=== PATIENT | female | born 1960 | race Caucasian/White ===

== ENCOUNTER 2018-06-30 08:35 | Inpatient (IN) | payer MEDICARE, OTHER ==
[~2018-06-30] VITALS: Ht 162.6 cm; Wt 73.1 kg
[2018-06-30 09:25] VITALS: BP 143/78
--- NOTE | 2018-06-30 10:00 | NUR ---
Pt arrived via [facility] @ [id number] by EMS. Completed admission assessment. Consult called to Dr. De La Torre. Received orders from Dr. Jones. Oriented to unit and routines. Call light within reach. Will continue to monitor.
[2018-06-30] MEDS ORDERED: MORPHINE SULFATE 4 MG/ML VIAL. IV PRN (10:45)
[2018-06-30] MEDS ORDERED: IV NORMAL SALINE 1000ML BAG 1,000 ML IV SCH (10:45)
[2018-06-30] MEDS ORDERED: ONDANSETRON PF 4 MG/2 ML VIAL. IV PRN ×2 (10:45→12:00)
[2018-06-30 11:00] VITALS: BP 120/66
--- NOTE | 2018-06-30 11:21 | PDOC2 ---
CONSULT Date of Consult Date of Consult DATE: 06/30/18 TIME: 11:13 Reason for Consult Reason for Consult: SBO 2/2 incarcerated [facility] Referring Physician Referring Physician: Dr Jones Identification/Chief Complaint Chief Complaint LLQ pain Source Source: Chart review, Patient History of Present Illness Reason for Visit: Le is a 57 yo lady who presented to the [facility] ED with c/o LLQ pain. CT shows a SBO 2/2 incarcerated small bowel in a left inguinal hernia. We are asked to see for same Past Medical History Cardiovascular: No pertinent hx Pulmonary: Asthma Past Surgical History Past Surgical History: Hysterectomy, Other (right breast lumpectomy) Family History Family History: No Significant Social History 1 pack per day ALCOHOL: none Drugs: None Current Medications Current Medications Current Medications Sodium Chloride 1,000 ml @ 100 mls/hr Q10H IV ; Start 06/30/18 at 10:45 Morphine Sulfate (Morphine Sulfate) 4 mg PRN Q4HRS PRN IV PAIN; Start 06/30/18 at 10:45 Ondansetron HCl (Zofran) 4 mg PRN Q6HRS PRN IV NAUSEA/VOMITING; Start 06/30/18 at 10:45 Allergies Allergies: Coded Allergies: chlorpromazine (Verified Allergy, Unknown, 06/30/18) ROS PSYCHOLOGICAL ROS: YES: Anxiety, Depression Gastrointestinal: Yes Nausea, Yes Abdominal Pain Physical Exam General: Alert, No acute distress HEENT: Atraumatic Lungs: Normal air movement Heart: Regular rate Abdomen: Soft, Other (some mild LLQ TTP ) Skin: Other (warm, dry) Vitals VITALS Vital Signs Date Time Temp Pulse Resp B/P (MAP) Pulse Ox O2 Delivery O2 Flow Rate FiO2 06/30/18 10:49 Room Air 06/30/18 09:25 97.6 64 18 143/78 (99) [address] done at [facility] reviewed Assessment/Plan Assessment/Plan SBO 2/2 incarcerated small bowel in a [facility] psych hx needs repair explained risks including but not limited to bleeding, infection, injury to bowel, bladder, possible need for an open procedure with bowel resection she understands and will proceed to OR today Thanks for consult LEX HEWITT MD Jun 30, 2018 11:21
[2018-06-30] MEDS ORDERED: fentaNYL PF VIAL 250 MCG/5 ML VIAL ONE (11:58)
[2018-06-30] MEDS ORDERED: ROCURONIUM 50 MG/5 ML VIAL. ONE (11:58)
[2018-06-30] MEDS ORDERED: HYDROmorphone 2 MG/ML VIAL IV PRN (12:00)
[2018-06-30] MEDS ORDERED: LIDOCAINE 1% PF 2 ML VIAL. ID PRN (12:00)
[2018-06-30] MEDS ORDERED: MORPHINE SULFATE 2 MG/ML VIAL. IV PRN (12:00)
[2018-06-30] MEDS ORDERED: fentaNYL PF VIAL 100 MCG/2 ML VIAL IV PRN ×2 (12:00)
[2018-06-30] MEDS ORDERED: IV RINGERS,LACTATED 1000ML 1,000 ML IV SCH (12:00)
--- NOTE | 2018-06-30 12:20 | PDOC ---
Provider Note Provider Note Ms Quiñones has decided against surgery and is leaving AMA. She feels that if she drinks more liquids and avoids solid food she will be OK. I explained to her I do not agree with that, but she has decided to leave. LEX HEWITT MD Jun 30, 2018 12:20
--- NOTE | 2018-06-30 12:44 | NUR ---
Pt requesting to leave AMA. Dr. De La Torre on the floor and aware. Called and updated Dr. Jones. Cab pass received from animal care supervisor. IV removed by IRONER.
--- NOTE | 2018-06-30 14:01 | NUR ---
Pt signed AMA forms. Sat with her until cab arrived. She was assisted in cab.
== END 2018-06-30 13:23 | disposition left against medical advice (07) | DRG 394 ==
LOC: 4 NORTH 09:30
PROVIDERS: ADMIT Internal Medicine; ATTEND Internal Medicine
DX: K40.90 Unilateral inguinal hernia, without obstruction or gangrene, not specified as recurrent (principal); K56.609 Unspecified intestinal obstruction, unspecified as to partial versus complete obstruction; J45.909 Unspecified asthma, uncomplicated; Z90.710 Acquired absence of both cervix and uterus; Z88.8 Allergy status to other drugs, medicaments and biological substances
CPT/HCPCS: J3010

== ENCOUNTER 2018-07-25 17:16 | Emergency (ER) | payer MEDICARE, OTHER ==
[~2018-07-25] VITALS: Ht 162.6 cm; Wt 73.0 kg
[2018-07-25 18:28] VITALS: BP 143/77
[2018-07-25] MEDS ORDERED: ONDANSETRON ODT 4 MG TAB.RAPDIS. PO ONE (18:45)
[2018-07-25] MEDS ORDERED: ONDA4TAB12 PO (19:50)
--- NOTE | 2018-07-25 19:51 | PHYS DOC ---
Past Medical History Past Medical History: Anxiety, Bipolar, CVA, Depression, Schizophrenia (CHELSEA BRANTLEY APRN) Past Surgical History: No Surgical History (CHELSEA BRANTLEY APRN) Adult General Chief Complaint Chief Complaint: NAUSEA/VOMITING/[facility] HPI Patient is a 58 year old female who presents to the emergency room with complaints of nausea times one day. Patient denies any fever, vomiting, diarrhea , constipation, or abdominal pain. She states she recently ran out of all of her medications and needs to get in contact with her counseling case manager so she can get her medication refills. Patient denies any chest pain, shortness of breath, cough, ear pain or sore throat. (CHELSEA BRANTLEY APRN) Review of Systems Review of Systems Constitutional: Denies fever or chills [] Eyes: Denies change in visual acuity, redness, or eye pain [] HENT: Denies nasal congestion or sore throat [] Respiratory: Denies cough or shortness of breath [] Cardiovascular: No additional information not addressed in HPI [] GI: Denies abdominal pain, vomiting,or diarrhea; reports nausea today Musculoskeletal: Denies back pain or joint pain [] Integument: Denies rash or skin lesions [] Neurologic: Denies headache, focal weakness or sensory changes [] (CHELSEA BRANTLEY APRN) Current Medications Current Medications Current Medications Medications (Trade) Dose Ordered Sig/Chad Start Time Stop Time Status Last Admin Dose Admin Ondansetron HCl (Zofran Odt) 4 mg 1X ONCE 07/25/18 18:45 07/25/18 18:46 DC 07/25/18 18:45 4 MG (JUSTA MAYERS DO) Allergies Allergies Allergies Coded Allergies Type Severity Reaction Last Updated Verified chlorpromazine Allergy Unknown 06/30/18 Yes (JUSTA MAYERS DO) Physical Exam Physical Exam Constitutional: Well developed, well nourished, no acute distress, non-toxic appearance. [] HENT: Normocephalic, atraumatic, bilateral external ears normal, oropharynx moist, no oral exudates, nose normal. [] Eyes: PERRLA, conjunctiva normal, no discharge. [] Neck: Normal range of motion, no stridor. [] Cardiovascular:Heart rate regular rhythm, no murmur [] Lungs & Thorax: Bilateral breath sounds clear to auscultation [] Abdomen: Bowel sounds normal, soft, no tenderness, no masses, no pulsatile masses. [] Skin: Warm, dry, no erythema, no rash. [] Extremities: No cyanosis, no clubbing, ROM intact Neurologic: Alert and oriented X 3, normal motor function, normal sensory function, no focal deficits noted. [] Psychologic: Affect normal, judgement normal, mood normal. [] (CHELSEA BRANTLEY APRN) Current Patient Data Vital Signs Vital Signs Date Time Temp Pulse Resp B/P (MAP) Pulse Ox O2 Delivery O2 Flow Rate FiO2 07/25/18 18:28 98.5 82 20 143/77 (99) 97 Room Air 98.5 (MAYERSJUSTA DAMON DO) EKG EKG [] (CHELSEA BRANTLEY APRN) Radiology/Procedures Radiology/Procedures [] (CHELSEA BRANTLEY APRN) Course & Med Decision Making Course & Med Decision Making Pertinent Labs and Imaging studies reviewed. (See chart for details) dx: Nausea Patient was given sublingual Zofran in the emergency department she reported feeling better after medication. A prescription was written for Zofran, patient was encouraged to follow up bland diet and nausea symptoms persist. Patient was encouraged to follow up with her counseling case manager so she can get her medications straightened out.Patient verbalized an understanding of home care, medications, follow-up, and return to ED instructions and was in agreement with the plan of care. [] (CHELSEA BRANTLEY APRN) Dragon Disclaimer Dragon Disclaimer This electronic medical record was generated, in whole or in part, using a voice recognition dictation system. (CHELSEA BRANTLEY APRN) Departure Departure Impression: Primary Impression: Nausea alone Disposition: 01 HOME, SELF-CARE Condition: STABLE Referrals: MEGAN BELLE APRN (PCP) Patient Instructions: Nausea, Adult, Bvsl-[id number] Additional Instructions: Fill prescription and use it as directed every 6 hours as needed for nausea. Recommend you follow bland diet until nausea symptoms subside. Follow-up with your counseling case manager as planned to get your medication straightened out. Return to the ER if your symptoms worsen. Scripts Ondansetron (ONDANSETRON ODT) 4 Mg Tab.rapdis 1 TAB PO PRN Q6-8HRS PRN for NAUSEA, #16 TAB 0 Refills Prov: CHELSEA BRANTLEY SANDWICH PEDDLER 07/25/18 Attending Signature Attending Signature I have reviewed the PA/BALLOON ARTIST's note and plan of care. I was available for consultation as needed during the patient's visit in the emergency department. I agree with the clinical impression, plan, and disposition. (JUSTA MAYERS DO) CHELSEA BRANTLEY SANDWICH PEDDLER Jul 25, 2018 19:51 JUSTA MAYERS DO Jul 29, 2018 12:52
== END 2018-07-25 19:58 | disposition home or self-care (01) ==
LOC: ER 17:16
DX: R11.0 Nausea (principal); F31.9 Bipolar disorder, unspecified; F20.9 Schizophrenia, unspecified; Z86.73 Personal history of transient ischemic attack (TIA), and cerebral infarction without residual deficits; Z88.8 Allergy status to other drugs, medicaments and biological substances
CPT/HCPCS: 99283; Q0162